=== PATIENT | male | born 1995 | race Caucasian/White ===

== ENCOUNTER 2017-06-09 14:31 | Inpatient (IN) | payer OTHER ==
[~2017-06-09] VITALS: Ht 182.9 cm; Wt 50.9 kg
[2017-06-09 15:16] LABS: MEAN CORPUSCULAR HGB CONC 33.2 g/dl (32.0-36.5); MEAN CORPUSCULAR VOLUME 87.4 fl (80.0-96.0); RED CELL DISTRIBUTION WIDTH 13.1 % (11.5-14.5); WHITE BLOOD COUNT 9.7 K/mm3 (4.0-10.0)
[2017-06-09 15:45] LABS: METHADONE URINE NEGATIVE (NEGATIVE)
[2017-06-09 15:52] LABS: ALBUMIN 4.3 GM/DL (3.2-5.2); ALKALINE PHOSPHATASE 82 U/L (45-117); ALT/SGPT 29 U/L (12-78); ANION GAP 10 MEQ/L (8-16); AST/SGOT 19 U/L (15-37); BILIRUBIN,DIRECT 0.2 MG/DL (0.0-0.2); BILIRUBIN,TOTAL 0.6 MG/DL (0.2-1.0); BLOOD UREA NITROGEN 12 MG/DL (7-18); CALCIUM LEVEL 8.5 MG/DL (8.5-10.1); CARBON DIOXIDE LEVEL 25 MEQ/L (21-32); CHLORIDE LEVEL 108 MEQ/L (98-107); CREATININE FOR GFR 0.99 MG/DL (0.70-1.30); GLUCOSE, FASTING 99 MG/DL (70-105); POTASSIUM SERUM 3.9 MEQ/L (3.5-5.1); SODIUM LEVEL 143 MEQ/L (136-145); TOTAL PROTEIN 7.6 GM/DL (6.4-8.2)
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
[2017-06-09] MEDS ORDERED: hydrOXYzine 25 MG TAB PO PRN (19:00)
[2017-06-09] MEDS ORDERED: OLANZapine ORAL DISINTEGRATING TAB 5MG PO PRN (19:00)
[2017-06-09] MEDS ORDERED: MOM 30ML SUSPENSION UDC PO PRN (19:00)
[2017-06-09] MEDS ORDERED: ACETAMINOPHEN TAB 650MG DOSE (2X325MG) PO PRN (19:00)
[2017-06-09] MEDS ORDERED: MAALOX 30 ML SUSP *UDC PO PRN (19:00)
--- NOTE | 2017-06-09 19:46 | ECGEPIP ---
Stationary ECG Study [facility] - ED Test Date: 2017-06-09 Pat Name: LB AWAD Department: Room: - Gender: M Physician Assistant Surgery: GENI : 1995 Requested By: Vickie Moore Order Number: [id number] Reading MD: Yan Page Measurements Intervals [place] Rate: 79 P: 57 MA: 184 QRS: 42 QRSD: 107 T: 33 QT: 355 QTc: 407 Interpretive Statements SINUS RHYTHM POSSIBLE LAE INC. RBBB NO PRIORS Electronically Signed On 06-09-2017 19:46:00 EDT by Yan Page
[2017-06-09 21:20] VITALS: BP 118/63
[2017-06-10 07:44] VITALS: BP 139/71
--- NOTE | 2017-06-10 16:41 | HPE ---
DATE OF ADMISSION: 06/09/2017 HISTORY OF PRESENT ILLNESS: Please refer to the psychiatric history and evaluation for further details on this admission. This examination and history is intended for medical issues which may need treatment, followup or consultation on this 21-year-old male. ALLERGIES: No known allergies. PRIMARY CARE PROVIDER: Martin Darden. 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 He does not drink alcohol. He smokes about three cigarettes per day. Recreational drug use: None. PAST MEDICAL HISTORY: Negative. PAST SURGICAL HISTORY: Negative. HOME MEDICATIONS: None. FAMILY HISTORY: Noncontributory. LABORATORY STUDIES: WBC 9.7, hemoglobin 12.9, hematocrit 38.7, platelets 208. Toxicology screen negative. Sodium 143, potassium 3.9, chloride 108, CO2 25, BUN and creatinine 12 and 0.99. EKG showed sinus rhythm of 79. X-ray of the neck was negative soft tissue x-ray. REVIEW OF SYSTEMS: Ten systems review was done and was unremarkable. The patient had attempted to hand himself. He states no difficulty swallowing. He has eaten. No neck pain. PHYSICAL EXAMINATION: A 21-year-old cooperative male in no acute distress. He is wearing glasses. Height 72 inches. Weight 83.8 kg. Body Mass Index (BMI) 25. Blood pressure 131/71, pulse 100, respirations 18, temperature 99.2, oxygen saturation 99% on room air. The patient is alert and oriented times three. Pupils are equal and reactive to light. Extraocular muscles intact. Sclerae clear. Conjunctivae normal. No facial asymmetry. Pharynx, gums and tongue pink and moist. Tongue is midline. Neck is supple without lymphadenopathy. No thyromegaly. No goiter. Carotids 2+ without bruit. Chest is clear to auscultation without wheeze or retraction. Heart is regular. Abdomen is benign. Bowel sounds positive. Genitourinary/Rectal: Not done. Extremities show equal strength, full range of motion. No clubbing, cyanosis, or edema. Peripheral pulses equal and palpable bilaterally. Skin is warm and dry. IMPRESSION AND PLAN: 1. Psychiatric plan per psychiatry. 2. No acute medical issues.
[2017-06-10 18:00] VITALS: BP 132/87
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
[2017-06-10] MEDS: traZODone 50 MG TAB PO PRN (20:49)
[2017-06-11 06:59] VITALS: BP 112/56
[2017-06-11] MEDS: FLUoxetine 10 MG CAP PO SCH (12:58)
[2017-06-11 18:00] VITALS: BP 117/59
--- NOTE | 2017-06-11 18:20 | MHIPNPDOC ---
[facility] Progress Note Progress Note DATE OF SERVICE: 06/11/17 HISTORY: Patient was seen and evaluated for his progress in the inpatient psychiatric unit. On evaluation, he reported that he has been feeling less depressed and anxious in the unit, mostly because the stresses of the work and the recent punishment that he was getting in the [employer] was to most stressful things that he has in his life and making him feel depressed and suicidal. After admission to the hospital. He is able to focus more on himself and currently denies any suicidal or homicidal ideations. He is willing to talk with the staff of the unit. If the suicidal ideas get worse in the unit. He denies any plan to commit suicide attempt suicide in the unit. He reported that his father and other family members where worried about him having autism, but he has never been diagnosed with autism formally. His half brother has been diagnosed with autism but he reported that he had difficulty in the school and the childhood most of the time, especially in the middle school and high school. He had difficulty to pass exams, but was never left behind. VITAL SIGNS: See below. CURRENT MEDICATIONS: See below. MENTAL STATUS EXAMINATION: 21yo male sitting in the chair, looks appropriate for the stated age, fair hygiene and grooming, normal psychomotor activities, no abnormal movements, cooperative with limited eye contact, speech is soft normal in rate, rhythm, amount and prosody, mood is 'sad & anxious', affect constricted and mood congruent, thought process is logical and goal directed, denies suicidal and homicidal ideations, denies hallucinations, no delusions elicited, aaox3, fair immediate, short term and half-way memory, poor insight, judgement and impulse control DIAGNOSES: 1. Major depression disorder with no psychosis. 2.. Anxiety disorder. 3., PTSD. MANAGEMENT PLAN: Start Prozac 10 mg a day. TIME SPENT:15 minutes. Vital Signs Vital Signs Date Time Temp Pulse Resp B/P (MAP) Pulse Ox O2 Delivery O2 Flow Rate FiO2 06/11/17 06:59 98.1 54 16 112/56 (74) Room Air 06/09/17 21:20 98 Current Medications Current Medications Acetaminophen (Tylenol Tab) 650 mg Q6HP PRN PO HEADACHE or DISCOMFORT; Start at 19:00; Stop 07/09/17 at 18:59 Al Hydrox/Mg Hydrox/Simethicone (Mylanta) 30 ml Q4HP PRN PO HEARTBURN/ INDIGESTION; Start 06/09/17 at 19:00; Stop 07/09/17 at 18:59 Fluoxetine HCl (PROzac) 10 mg QAM PO Last administered on 06/11/17 12:58; Start 06/11/17 at 09:00; Stop 07/11/17 at 08:59 Home Med (Med Rec Complete!) ASDIRECTED XX ; Start 06/09/17 at 15:15; Stop at 15:15; Status DC Hydroxyzine HCl (Atarax) 75 mg Q4HP PRN PO ANXIETY; Start 06/09/17 at 19:00; Stop 07/09/17 at 18:59 Magnesium Hydroxide (Milk Of Magnesia) 30 ml DAILYPRN PRN PO CONSTIPATION; Start 06/09/17 at 19:00; Stop 07/09/17 at 18:59 Olanzapine (ZyPREXA ZYDIS) 5 mg Q4HP PRN PO AGITATION; Start 06/09/17 at 19 :00; Stop 07/09/17 at 18:59 Trazodone HCl (Desyrel) 50 mg QHSP PRN PO INSOMNIA Last administered on 20:49; Start 06/09/17 at 19:00; Stop 07/09/17 at 18:59 Allergies Coded Allergies: No Known Allergies (Unverified , 06/09/17) MARY MOREL MD Jun 11, 2017 18:20
[2017-06-11] MEDS: traZODone 50 MG TAB PO PRN (20:27)
[2017-06-12 06:15] VITALS: BP 120/53
[2017-06-12] MEDS: FLUoxetine 10 MG CAP PO SCH (09:11)
--- NOTE | 2017-06-12 14:21 | MHIPNPDOC ---
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 No deployment, never , no children, no significant past psychiatric history never been admitted to inpatient psychiatric hospital or ever been on psychotropic medications, denies any substance use. No significant past medical history, brought in by chain of command for his recent suicide attempt with hanging self. Patient was seen and evaluated for his progress and inpatient psychiatry unit. He reported that he has been feeling less depressed and less anxious while he is here and denies any suicidal or homicidal ideations. He also denies any plans or intention to commit suicide while being in the hospital and willing to seek help if the thoughts of suicide, get worse. He remains to himself and is reading the books most of the time, feeling traction with others in the unit and somewhat limited participation in the unit activities. Encouraged patient to anticipate more into unit. He reported started taking medications and denies any side effects with the current medications. Sleeping and eating well. Discussed about coping skills and also discussed about preparing journal and coping card. He is able to understand that changes in distress have been affecting him. VITAL SIGNS: See below. CURRENT MEDICATIONS: See below. MENTAL STATUS EXAMINATION: 21yo male sitting in the chair, looks appropriate for the stated age, fair hygiene and grooming, normal psychomotor activities, no abnormal movements, cooperative with limited eye contact, speech is soft normal in rate, rhythm, amount and prosody, mood is 'sad & anxious', affect constricted and mood congruent, thought process is logical and goal directed, denies suicidal and homicidal ideations, denies hallucinations, no delusions elicited, aaox3, fair immediate, short term and usp memory, poor insight, judgement and impulse control DIAGNOSES: 1. Major depression disorder with no psychosis. 2. Anxiety disorder. 3. PTSD. MANAGEMENT PLAN: Start Prozac 10 mg a day. TIME SPENT:15 minutes. Vital Signs Vital Signs Date Time Temp Pulse Resp B/P (MAP) Pulse Ox O2 Delivery O2 Flow Rate FiO2 06/12/17 06:15 98.1 55 19 120/53 (75) Room Air 06/09/17 21:20 98 Current Medications Current Medications Acetaminophen (Tylenol Tab) 650 mg Q6HP PRN PO HEADACHE or DISCOMFORT; Start at 19:00; Stop 07/09/17 at 18:59 Al Hydrox/Mg Hydrox/Simethicone (Mylanta) 30 ml Q4HP PRN PO HEARTBURN/ INDIGESTION; Start 06/09/17 at 19:00; Stop 07/09/17 at 18:59 Fluoxetine HCl (PROzac) 10 mg QAM PO Last administered on 06/12/17 09:11; Start 06/11/17 at 09:00; Stop 07/11/17 at 08:59 Home Med (Med Rec Complete!) ASDIRECTED XX ; Start 06/09/17 at 15:15; Stop at 15:15; Status DC Hydroxyzine HCl (Atarax) 75 mg Q4HP PRN PO ANXIETY; Start 06/09/17 at 19:00; Stop 07/09/17 at 18:59 Magnesium Hydroxide (Milk Of Magnesia) 30 ml DAILYPRN PRN PO CONSTIPATION; Start 06/09/17 at 19:00; Stop 07/09/17 at 18:59 Olanzapine (ZyPREXA ZYDIS) 5 mg Q4HP PRN PO AGITATION; Start 06/09/17 at 19 :00; Stop 07/09/17 at 18:59 Trazodone HCl (Desyrel) 50 mg QHSP PRN PO INSOMNIA Last administered on 20:27; Start 06/09/17 at 19:00; Stop 07/09/17 at 18:59 Allergies Coded Allergies: No Known Allergies (Unverified , 06/09/17) MARY MOREL MD Jun 12, 2017 14:21
[2017-06-12 18:00] VITALS: BP 106/62
[2017-06-13 07:03] VITALS: BP 113/58
[2017-06-13] MEDS: FLUoxetine 10 MG CAP PO SCH (08:53)
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
[2017-06-13 18:00] VITALS: BP 110/59
[2017-06-13] MEDS: traZODone 50 MG TAB PO PRN (21:10)
[2017-06-14 06:00] VITALS: BP 112/56
[2017-06-14] MEDS: FLUoxetine 20 MG CAP PO SCH (08:15)
[2017-06-14 18:00] VITALS: BP 103/58
[2017-06-14] MEDS: traZODone 50 MG TAB PO PRN (22:06)
[2017-06-15 06:36] VITALS: BP 104/53
[2017-06-15] MEDS: FLUoxetine 20 MG CAP PO SCH (09:00)
[2017-06-15 18:00] VITALS: BP 134/73
[2017-06-15] MEDS: traZODone 50 MG TAB PO PRN (21:52)
[2017-06-16 06:00] VITALS: BP 128/60
[2017-06-16] MEDS: FLUoxetine 20 MG CAP PO SCH (08:46)
--- NOTE | 2017-06-16 14:21 | MHIPNPDOC ---
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 No deployment, never , no children, no significant past psychiatric history never been admitted to inpatient psychiatric hospital or ever been on psychotropic medications, denies any substance use. No significant past medical history, brought in by [employer] for his recent suicide attempt with hanging self. Patient was seen and evaluated for his progress in inpatient psychiatry. On evaluation, patient reported that he has been feeling better and able to go to a different unit activities including group therapy, and milieu treatment. He finds dose treatment helpful in terms of learning new coping skills and also learning new communication skills, which he is planning to use in work as well as other aspects of life, reported being compliant with the medications and denies any side effects. Also denies any sleep or appetite problems. He continued to deny any suicidal or homicidal ideations, intentions or plans. He was willing to engage in the safety plan that he will be able to talk with the outpatient psychiatrist or therapist about any changes or deterioration in his mood and also willing to talk with friends about it. He is also willing to call 911 in case of emergencies. He reported that there is a change in his position in the [employer] and he is looking forward to the new position because he knows the people in the new position and thinks that the new position will be of less stress compared to the previous one. VITAL SIGNS: See below. CURRENT MEDICATIONS: See below. MENTAL STATUS EXAMINATION: 21yo male sitting in the chair, looks appropriate for the stated age, fair hygiene and grooming, normal psychomotor activities, no abnormal movements, cooperative with limited eye contact, speech is soft normal in rate, rhythm, amount and prosody, mood is 'fine', affect full and mood congruent, thought process is logical and goal directed, denies suicidal and homicidal ideations, denies hallucinations, no delusions elicited, aaox3, fair immediate, short term and senior living memory, improving insight, judgement and impulse control DIAGNOSES: 1. Major depression disorder with no psychosis. 2. Anxiety disorder. 3. PTSD. MANAGEMENT PLAN: Continue current meds, discharge planning in progress. TIME SPENT:15 minutes. Vital Signs Vital Signs Date Time Temp Pulse Resp B/P (MAP) Pulse Ox O2 Delivery O2 Flow Rate FiO2 8/28/17 06:00 98.2 69 18 128/60 (82) Room Air Current Medications Current Medications Acetaminophen (Tylenol Tab) 650 mg Q6HP PRN PO HEADACHE or DISCOMFORT; Start at 19:00; Stop 07/09/17 at 18:59 Al Hydrox/Mg Hydrox/Simethicone (Mylanta) 30 ml Q4HP PRN PO HEARTBURN/ INDIGESTION; Start 06/09/17 at 19:00; Stop 07/09/17 at 18:59 Fluoxetine HCl (PROzac) 10 mg QAM PO Last administered on 06/13/17 08:53; Start 06/11/17 at 09:00; Stop 06/13/17 at 13:59; Status DC Fluoxetine HCl (PROzac) 20 mg QAM PO Last administered on 06/16/17 08:46; Start 06/14/17 at 09:00; Stop 07/14/17 at 08:59 Home Med (Med Rec Complete!) ASDIRECTED XX ; Start 06/09/17 at 15:15; Stop at 15:15; Status DC Hydroxyzine HCl (Atarax) 75 mg Q4HP PRN PO ANXIETY; Start 06/09/17 at 19:00; Stop 07/09/17 at 18:59 Magnesium Hydroxide (Milk Of Magnesia) 30 ml DAILYPRN PRN PO CONSTIPATION; Start 06/09/17 at 19:00; Stop 07/09/17 at 18:59 Olanzapine (ZyPREXA ZYDIS) 5 mg Q4HP PRN PO AGITATION; Start 06/09/17 at 19 :00; Stop 07/09/17 at 18:59 Trazodone HCl (Desyrel) 50 mg QHSP PRN PO INSOMNIA Last administered on 21:52; Start 06/09/17 at 19:00; Stop 07/09/17 at 18:59 Allergies Coded Allergies: No Known Allergies (Unverified , 06/09/17) MARY MOREL MD Jun 16, 2017 14:21
[2017-06-16] MEDS ORDERED: FLUO20CA19 PO (14:22)
[2017-06-16] MEDS ORDERED: TRAZO50TA PO (14:22)
[2017-06-16 18:00] VITALS: BP 107/56
[2017-06-17 06:52] VITALS: BP 111/55
[2017-06-17] MEDS ORDERED: TRAZO50TA PO (08:52)
[2017-06-17] MEDS ORDERED: FLUO20CA19 PO (08:52)
[2017-06-17] MEDS: FLUoxetine 20 MG CAP PO SCH (09:00)
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
== END 2017-06-17 09:20 | disposition home or self-care (01) | DRG 885 ==
LOC: M ED 14:31 → M ED INP 18:47 → M PSY 21:20
PROVIDERS: ADMIT Psychiatry & Neurology Psychiatry; ATTEND Psychiatry & Neurology Psychiatry
DX: F33.2 Major depressive disorder, recurrent severe without psychotic features (principal); R45.851 Suicidal ideations; F43.10 Post-traumatic stress disorder, unspecified; Z62.810 Personal history of physical and sexual abuse in childhood; F17.210 Nicotine dependence, cigarettes, uncomplicated

== ENCOUNTER 2017-07-12 01:23 | Inpatient (IN) | payer OTHER ==
[~2017-07-12] VITALS: Ht 182.9 cm; Wt 79.0 kg
[~2017-07-12 01:23] MED LIST: FLUO20CA19 PO; TRAZO50TA PO
[2017-07-12] MEDS ORDERED: NS 1,000 ML IV ONE (02:30)
[2017-07-12 02:35] LABS: MEAN CORPUSCULAR HGB CONC 34.3 g/dl (32.0-36.5); MEAN CORPUSCULAR VOLUME 87.4 fl (80.0-96.0); RED CELL DISTRIBUTION WIDTH 13.3 % (11.5-14.5); WHITE BLOOD COUNT 13.3 K/mm3 (4.0-10.0)
[2017-07-12 02:51] LABS: ALBUMIN 4.1 GM/DL (3.2-5.2); ALBUMIN/GLOBULIN RATIO 1.11 (1.00-1.93); ALKALINE PHOSPHATASE 90 U/L (45-117); ALT/SGPT 53 U/L (12-78); ANION GAP 8 MEQ/L (8-16); AST/SGOT 32 U/L (15-37); BILIRUBIN,DIRECT 0.2 MG/DL (0.0-0.2); BILIRUBIN,TOTAL 0.4 MG/DL (0.2-1.0); BLOOD UREA NITROGEN 14 MG/DL (7-18); CALCIUM LEVEL 8.5 MG/DL (8.5-10.1); CARBON DIOXIDE LEVEL 27 MEQ/L (21-32); CHLORIDE LEVEL 108 MEQ/L (98-107); CREATININE FOR GFR 0.77 MG/DL (0.70-1.30); GLUCOSE, FASTING 106 MG/DL (70-105); SODIUM LEVEL 143 MEQ/L (136-145); TOTAL PROTEIN 7.8 GM/DL (6.4-8.2)
[2017-07-12 03:07] LABS: METHADONE URINE NEGATIVE (NEGATIVE)
[2017-07-12] MEDS ORDERED: MOM 30ML SUSPENSION UDC PO PRN (10:00)
[2017-07-12] MEDS ORDERED: MAALOX 30 ML SUSP *UDC PO PRN (10:00)
[2017-07-12] MEDS ORDERED: ACETAMINOPHEN TAB 650MG DOSE (2X325MG) PO PRN (10:00)
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
[2017-07-12] MEDS: FLUoxetine 20 MG CAP PO SCH (15:24)
[2017-07-12] MEDS ORDERED: NICOTINE 21MG/24HR 1 EA TRANSDERMAL TD ONE (17:45)
[2017-07-12 18:15] VITALS: BP 112/66
[2017-07-12] MEDS: traZODone 50 MG TAB PO PRN (20:09)
[2017-07-13] MEDS: FLUoxetine 20 MG CAP PO SCH (08:47)
[2017-07-13] MEDS: NICOTINE 21MG/24HR 1 EA TRANSDERMAL TD SCH (08:47)
--- NOTE | 2017-07-13 13:48 | HPE ---
DATE OF ADMISSION: 07/13/2017 HISTORY OF THE PRESENT ILLNESS: Please refer to psychiatric history and evaluation for further details on this admission. This examination and history is intended for medical issues, which may need treatment, followup or consult on this 22-year-old male. ALLERGIES: No known allergies. 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 He occasionally drinks alcohol on the weekends. He smokes about three cigarettes per day. Recreational drug use: None. PAST MEDICAL HISTORY: Negative. PAST SURGICAL HISTORY: Negative. HOME MEDICATIONS: None. He states he never filled the prescriptions he received upon his last admission here in May. LABORATORY STUDIES: WBC 13.3, hemoglobin 14.1, hematocrit 41.0, platelets 224. Sodium 143, potassium 4.0, chloride 108, CO2 27, BUN and creatinine 14 and 0.77. Toxicology screen was negative. EKG done in May showed sinus rhythm 79. FAMILY HISTORY: Noncontributory. Ten-system review was done and was unremarkable. PHYSICAL EXAMINATION: A 22-year-old cooperative male in no acute distress. Height 70 inches, weight 79.5, body mass index (BMI) 23. Blood pressure 128/60, pulse 85, respirations 16, temperature 98.4. The patient is alert and oriented times three. Pupils are equal and reactive to light. Extraocular movements intact. Cornea and sclerae clear. Conjunctivae is normal. No facial asymmetry. Pharynx: Tongue and gums pink and moist. Tongue is midline. Neck is supple without lymphadenopathy. No thyromegaly. No goiter. Carotids 2+ without bruit. Chest is clear to auscultation without wheeze or retractions. Heart is regular. Abdomen benign. Bowel sounds are positive. Genital/Rectal: Not done. Extremities show equal strength, full range of motion. No cyanosis, clubbing or edema. Peripheral pulses equal and palpable bilaterally. Skin is warm and dry. IMPRESSION AND PLAN: Psychiatric plan per psychiatry. No acute medical issues.
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
[2017-07-13 18:10] VITALS: BP 105/58
[2017-07-13] MEDS: traZODone 50 MG TAB PO PRN (21:19)
[2017-07-14 06:36] VITALS: BP 116/58
[2017-07-14] MEDS: FLUoxetine 20 MG CAP PO SCH (08:40)
[2017-07-14] MEDS: NICOTINE 21MG/24HR 1 EA TRANSDERMAL TD SCH (08:40)
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
[2017-07-14 18:00] VITALS: BP 121/64
[2017-07-14] MEDS: traZODone 100 MG TAB PO PRN (20:21)
[2017-07-15 06:22] VITALS: BP 100/52
[2017-07-15] MEDS: NICOTINE 21MG/24HR 1 EA TRANSDERMAL TD SCH (08:48)
[2017-07-15] MEDS: FLUoxetine 20 MG CAP PO SCH (08:48)
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
[2017-07-15 18:00] VITALS: BP 110/82
[2017-07-15] MEDS: traZODone 100 MG TAB PO PRN (21:35)
[2017-07-16 06:54] VITALS: BP 120/58
[2017-07-16] MEDS: NICOTINE 21MG/24HR 1 EA TRANSDERMAL TD SCH (08:21)
[2017-07-16] MEDS: FLUoxetine 20 MG CAP PO SCH (08:21)
--- NOTE | 2017-07-16 16:12 | MHIPN ---
DATE: 07/16/2017 Mr. Bergeron states he slept better. His mood is improved. He states, however, his mood is much better when he is with friends. 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 He would like to begin the chaptering process. He would like to be chaptered out. He feels he will be charged with underage drinking and abusive of over-the counter medications. 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 He would like to move in with friends and then with his father, go to school, move to [place], and do drafting work. MENTAL STATUS: Speech is normal. Thought process is normal. No loose associations. No psychotic thoughts. Eye contact is poor. Affect is downcast. Judgment and insight are poor. Full orientation. Recent and remote memory are intact. Attention and concentration intact. No disturbance of language. Denies delusions, hallucinations, obsessions, compulsions. He has full fund of knowledge. DIAGNOSES: 1. Major depression. 2. Generalized anxiety.
[2017-07-16 18:00] VITALS: BP 131/65
[2017-07-16] MEDS: traZODone 100 MG TAB PO PRN (22:29)
[2017-07-17 06:00] VITALS: BP 109/52
[2017-07-17] MEDS: NICOTINE 21MG/24HR 1 EA TRANSDERMAL TD SCH (08:49)
[2017-07-17] MEDS: FLUoxetine 20 MG CAP PO SCH (08:49)
--- NOTE | 2017-07-17 15:07 | MHIPN ---
DATE: 07/17/2017 Mr. Bergeron continues to have poor eye contact. He states he has had a meeting with his chain of command and that they have told him he was going to be chaptered out. They wanted to know he states that his command wanted to know why he did not have to talk and why it is difficult for him to share his thoughts. He states Dr. Connor mentioned to him that he had certain autistic features. He states his feelings are mixed about being chaptered out, that he is disappointed he could not go to his contract, but he is hoping to go home to [place], grow a dsouza, get a dog, and get a job. He waivers on suicidal thoughts, stating he needs to "work through these last episodes in the [employer]." He states it can take numerous weeks for him to be chaptered out. DIAGNOSES: Depression. Autistic features. Generalized anxiety. No change in medication at this time.
[2017-07-17 18:00] VITALS: BP 121/63
[2017-07-17] MEDS: traZODone 100 MG TAB PO PRN (21:27)
[2017-07-18 06:23] VITALS: BP 110/56
[2017-07-18] MEDS: FLUoxetine 20 MG CAP PO SCH (10:06)
[2017-07-18] MEDS: NICOTINE 21MG/24HR 1 EA TRANSDERMAL TD SCH (10:06)
--- NOTE | 2017-07-18 11:35 | MHIPN ---
DATE: 07/18/2017 Staff has spent a great deal of time discussing with Mr. Bergeron whether in fact he should go to long-term care. A therapist who he is not completely aware of called me yesterday stating that it was her decision, but thought that he should go to long-term care. The patient himself would perhaps rather be chaptered out and return to [place] and seek treatment from home. The patient is presently ambivalent on this topic. MENTAL STATUS EXAMINATION: Eye contact is slightly better. Speech is still slow. Thought process is slow. No loose associations. No psychotic thoughts. Judgment and insight are poor. He is fully oriented. Recent and remote memory intact. Attention and concentration intact. No disturbance of language. Full fund of knowledge. Mood is neutral. Affect is neutral. DIAGNOSES: 1. Major depressive illness. 2. Personality disorder traits PLAN: Patient either to be discharged to [facility] and continue chapter process or discharged to long-term care. He will be having a meeting with the chain of command today. NELIA
[2017-07-18] MEDS: hydrOXYzine 25 MG TAB PO PRN (14:32)
[2017-07-18 18:00] VITALS: BP_SYST 111; BP_SYST 153; BP_DIAS 63; BP_DIAS 94
[2017-07-19 06:59] VITALS: BP 97/54
[2017-07-19] MEDS: NICOTINE 21MG/24HR 1 EA TRANSDERMAL TD SCH (08:50)
[2017-07-19] MEDS: FLUoxetine 20 MG CAP PO SCH (08:51)
[2017-07-19] MEDS: hydrOXYzine 25 MG TAB PO PRN (12:03)
[2017-07-19] MEDS ORDERED: OLANZapine 5 MG TAB PO PRN (12:15)
[2017-07-19 18:00] VITALS: BP 100/55
[2017-07-20 06:00] VITALS: BP 111/56
[2017-07-20] MEDS: NICOTINE 21MG/24HR 1 EA TRANSDERMAL TD SCH ×2 (08:50→09:00)
[2017-07-20] MEDS: FLUoxetine 20 MG CAP PO SCH (08:50)
[2017-07-20 18:00] VITALS: BP 109/55
[2017-07-20] MEDS: traZODone 100 MG TAB PO PRN (20:40)
[2017-07-21 06:33] VITALS: BP 108/57
[2017-07-21] MEDS: FLUoxetine 20 MG CAP PO SCH (09:54)
[2017-07-21] MEDS: NICOTINE 21MG/24HR 1 EA TRANSDERMAL TD SCH (09:55)
--- NOTE | 2017-07-21 15:19 | MHIPNPDOC ---
[facility] Progress Note Progress Note DATE OF SERVICE: 07/21/17 HISTORY: . Shortness of 22 years old. male that was admitted due to worsening depressive symptoms, increased anxiety and some suicidal ideas with no specific plan currently. He endorsed depressed mood, feeling more anxious than usual, having sleeping problems, not able to sleep at night, waking up frequently. Denied any just hurt himself. No manic hypomanic symptoms or psychosis, no panic attacks or symptoms of panic disorder. No symptoms of PTSD VITAL SIGNS: See below. NEW TEST RESULTS: . CURRENT MEDICATIONS: See below. MENTAL STATUS EXAMINATION: Patient is a 22-year-old male, looks stated age, casually dressed Speech: Is . Fluent and coherent Language skills are . Amelia Thought processes including: . Linear and coherent, goal-directed Thought content: No suicidal or homicidal ideas. No delusions elicited. No perceptual disturbances Description of abnormal or psychotic thoughts: . No psychosis Judgment: . Fair Insight: very limited, good, fair. poor. Fair Orientation: . Oriented 3 Recent and remote memory: . Intact Attention span and concentration: . Fair Language: . No abnormalities Fund of knowledge: . Adequate Mood: " More anxious". Affect: . Constricted but appropriate, congruent DIAGNOSES: 1. . Major depressive disorder, single episode 2. . 3. . ASSESSMENT: Continue current medications. Discharge plan to long-term facility for long- term treatment care became Vistaril 50 mg every 6 hours as needed for anxiety and insomnia MANAGEMENT PLAN: . TIME SPENT: 25 minutes. Vital Signs Vital Signs Date Time Temp Pulse Resp B/P (MAP) Pulse Ox O2 Delivery O2 Flow Rate FiO2 07/21/17 06:33 96.8 60 14 108/57 (74) 07/20/17 06:00 Room Air Current Medications Current Medications Acetaminophen (Tylenol Tab) 650 mg Q6HP PRN PO HEADACHE or DISCOMFORT; Start at 10:00; Stop 08/11/17 at 09:59 Al Hydrox/Mg Hydrox/Simethicone (Mylanta) 30 ml Q4HP PRN PO HEARTBURN/ INDIGESTION; Start 07/12/17 at 10:00; Stop 08/11/17 at 09:59 Fluoxetine HCl (PROzac) 20 mg DAILY PO Last administered on 07/13/17t 08:47; Start 07/12/17 at 09:00; Stop 07/13/17 at 12:11; Status DC Fluoxetine HCl (PROzac) 40 mg DAILY PO Last administered on 07/21/17 09:54; Start 07/14/17 at 09:00; Stop 08/13/17 at 08:59 Home Med (Med Rec Complete!) ASDIRECTED XX ; Start 07/12/17 at 09:45; Stop at 09:45; Status DC Hydroxyzine HCl (Atarax) 25 mg BIDP PRN PO ANXIETY Last administered on 12:03; Start 07/18/17 at 14:30; Stop 07/19/17 at 12:10; Status DC Hydroxyzine HCl (Atarax) 50 mg Q8H PRN PO ANXIETY, INSOMNIA; Start 07/21/17 at 14:15; Stop 08/20/17 at 14:14 Magnesium Hydroxide (Milk Of Magnesia) 30 ml DAILYPRN PRN PO CONSTIPATION; Start 07/12/17 at 10:00; Stop 08/11/17 at 09:59 Nicotine (Nicoderm Cq 21mg) 1 patch DAILY TD Last administered on 07/21/17 09: 55; Start 07/13/17 at 09:00; Stop 08/12/17 at 08:59 Olanzapine (ZyPREXA) 5 mg Q6HP PRN PO ANXIETY/AGITATION Last administered on 16:14; Start 07/19/17 at 12:15; Stop 08/18/17 at 12:14 Trazodone HCl (Desyrel) 50 mg QHSP PRN PO INSOMNIA Last administered on 21:19; Start 07/12/17 at 10:00; Stop 07/14/17 at 11:48; Status DC Trazodone HCl (Desyrel) 100 mg QHSP PRN PO INSOMNIA Last administered on 20:40; Start 07/14/17 at 11:45; Stop 08/13/17 at 11:44 Allergies Coded Allergies: No Known Allergies (Unverified , 06/09/17) CECILIA UMANZOR MD Jul 21, 2017 15:19
[2017-07-21 18:09] VITALS: BP 124/68
[2017-07-21] MEDS: hydrOXYzine 50 MG TAB PO PRN (18:55)
[2017-07-21] MEDS: traZODone 100 MG TAB PO PRN (20:44)
[2017-07-22 06:35] VITALS: BP 126/69
[2017-07-22] MEDS: FLUoxetine 20 MG CAP PO SCH (09:25)
[2017-07-22] MEDS: NICOTINE 21MG/24HR 1 EA TRANSDERMAL TD SCH (09:25)
--- NOTE | 2017-07-22 13:38 | MHIPNPDOC ---
[facility] Progress Note Progress Note DATE OF SERVICE: 07/22/17 HISTORY: . Patient reported feeling less anxious today. He was prescribed Vistaril 50 mg every 8 hours as needed for anxiety. He took one dose yesterday. Reported slept around 6 hours. Denied any ideas of self-harm, however, continues to endorse depressed mood. No side effects of medications. Recommendations is to continue the Prozac 40 mg daily and the Vistaril 50 mg every 8 hours. No medication changes for today VITAL SIGNS: See below. NEW TEST RESULTS: none. CURRENT MEDICATIONS: See below. MENTAL STATUS EXAMINATION: Patient is a 22-year-old male, looks stated age, casually dressed Speech: Is . Fluent and coherent Language skills are . Amelia Thought processes including: . Linear and coherent, goal-directed Thought content: No suicidal or homicidal ideas. No delusions elicited. No perceptual disturbances Description of abnormal or psychotic thoughts: . No psychosis Judgment: . Fair Insight: very limited, good, fair. poor. Fair Orientation: . Oriented 3 Recent and remote memory: . Intact Attention span and concentration: . Fair Language: . No abnormalities Fund of knowledge: . Adequate Mood: " More anxious". Affect: . Constricted but appropriate, congruent DIAGNOSES: 1. . Major depressive disorder 2. . 3. . ASSESSMENT: 22 years old male with symptoms of depression and anxiety really doing a little better. Still with depressed mood but anxiety is under control with current medications. He will benefit from long-term care MANAGEMENT PLAN: . Continue Vistaril 50 mg every day, every 8 hours as needed for anxiety and Prozac 40 mg daily for depression TIME SPENT: 25 minutes. Vital Signs Vital Signs Date Time Temp Pulse Resp B/P (MAP) Pulse Ox O2 Delivery O2 Flow Rate FiO2 07/22/17 06:35 97.2 61 16 126/69 (88) 07/20/17 06:00 Room Air Current Medications Current Medications Acetaminophen (Tylenol Tab) 650 mg Q6HP PRN PO HEADACHE or DISCOMFORT; Start at 10:00; Stop 08/11/17 at 09:59 Al Hydrox/Mg Hydrox/Simethicone (Mylanta) 30 ml Q4HP PRN PO HEARTBURN/ INDIGESTION; Start 07/12/17 at 10:00; Stop 08/11/17 at 09:59 Fluoxetine HCl (PROzac) 20 mg DAILY PO Last administered on 07/13/17 08:47; Start 07/12/17 at 09:00; Stop 07/13/17 at 12:11; Status DC Fluoxetine HCl (PROzac) 40 mg DAILY PO Last administered on 07/22/17 09:25; Start 07/14/17 at 09:00; Stop 08/13/17 at 08:59 Home Med (Med Rec Complete!) ASDIRECTED XX ; Start 07/12/17 at 09:45; Stop at 09:45; Status DC Hydroxyzine HCl (Atarax) 25 mg BIDP PRN PO ANXIETY Last administered on 12:03; Start 07/18/17 at 14:30; Stop 07/19/17 at 12:10; Status DC Hydroxyzine HCl (Atarax) 50 mg Q8H PRN PO ANXIETY, INSOMNIA Last administered on 07/21/17 18:55; Start 07/21/17 at 14:15; Stop 08/20/17 at 14:14 Magnesium Hydroxide (Milk Of Magnesia) 30 ml DAILYPRN PRN PO CONSTIPATION; Start 07/12/17 at 10:00; Stop 08/11/17 at 09:59 Nicotine (Nicoderm Cq 21mg) 1 patch DAILY TD Last administered on 07/22/17 09: 25; Start 07/13/17 at 09:00; Stop 08/12/17 at 08:59 Olanzapine (ZyPREXA) 5 mg Q6HP PRN PO ANXIETY/AGITATION Last administered on 16:14; Start 07/19/17 at 12:15; Stop 08/18/17 at 12:14 Trazodone HCl (Desyrel) 50 mg QHSP PRN PO INSOMNIA Last administered on 21:19; Start 07/12/17 at 10:00; Stop 07/14/17 at 11:48; Status DC Trazodone HCl (Desyrel) 100 mg QHSP PRN PO INSOMNIA Last administered on 20:44; Start 07/14/17 at 11:45; Stop 08/13/17 at 11:44 Allergies Coded Allergies: No Known Allergies (Unverified , 06/09/17) CECILIA UMANZOR MD Jul 22, 2017 13:31
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
[2017-07-22 18:00] VITALS: BP 100/62
[2017-07-22] MEDS: traZODone 100 MG TAB PO PRN (20:44)
[2017-07-22] MEDS: hydrOXYzine 50 MG TAB PO PRN (20:44)
[2017-07-23 06:20] VITALS: BP 127/56
[2017-07-23] MEDS: FLUoxetine 20 MG CAP PO SCH (08:16)
[2017-07-23] MEDS: NICOTINE 21MG/24HR 1 EA TRANSDERMAL TD SCH ×2 (08:16→08:56)
--- NOTE | 2017-07-23 14:25 | MHIPNPDOC ---
[facility] Progress Note Progress Note DATE OF SERVICE: 07/23/17 HISTORY: . Patient reported feeling less anxious today, REPORTED 02/26 , He was prescribed Vistaril 50 mg every 8 hours as needed for anxiety. He took only one dose yesterday. Reported slept well. Denied any ideas of self-harm. No side effects of medications. Recommendations is to continue the Prozac 40 mg daily and the Vistaril 50 mg every 8 hours. He feels fine, ready for discharge tomorrow morning. VITAL SIGNS: See below. NEW TEST RESULTS: none. CURRENT MEDICATIONS: See below. MENTAL STATUS EXAMINATION: Patient is a 22-year-old male, looks stated age, casually dressed Speech: Is . Fluent and coherent Language skills are . Normal Thought processes including: . Linear and coherent, goal-directed Thought content: No suicidal or homicidal ideas. No delusions elicited. No perceptual disturbances Description of abnormal or psychotic thoughts: . No psychosis Judgment: . Fair Insight: very limited, good, fair. poor. Fair Orientation: . Oriented 3 Recent and remote memory: . Intact Attention span and concentration: . Fair Language: . No abnormalities Fund of knowledge: . Adequate Mood: " More anxious". Affect: . Constricted but appropriate, congruent DIAGNOSES: 1. . Major depressive disorder 2. . 3. . ASSESSMENT: 22 years old male with symptoms of depression and anxiety really doing a little better. His anxiety is under control with current medications. He will benefit from long-term care MANAGEMENT PLAN: . Continue Vistaril 50 mg every day, every 8 hours as needed for anxiety and Prozac 40 mg daily for depression Discharge in the morning to [facility] TIME SPENT: 25 minutes. Vital Signs Vital Signs Date Time Temp Pulse Resp B/P (MAP) Pulse Ox O2 Delivery O2 Flow Rate FiO2 07/23/17 06:20 97.4 72 18 127/56 (79) 07/20/17 06:00 Room Air Current Medications Current Medications Acetaminophen (Tylenol Tab) 650 mg Q6HP PRN PO HEADACHE or DISCOMFORT; Start at 10:00; Stop 08/11/17 at 09:59 Al Hydrox/Mg Hydrox/Simethicone (Mylanta) 30 ml Q4HP PRN PO HEARTBURN/ INDIGESTION; Start 07/12/17 at 10:00; Stop 08/11/17 at 09:59 Fluoxetine HCl (PROzac) 20 mg DAILY PO Last administered on 07/13/17 08:47; Start 07/12/17 at 09:00; Stop 07/13/17 at 12:11; Status DC Fluoxetine HCl (PROzac) 40 mg DAILY PO Last administered on 07/23/17 08:16; Start 07/14/17 at 09:00; Stop 08/13/17 at 08:59 Home Med (Med Rec Complete!) ASDIRECTED XX ; Start 07/12/17 at 09:45; Stop at 09:45; Status DC Hydroxyzine HCl (Atarax) 25 mg BIDP PRN PO ANXIETY Last administered on 12:03; Start 07/18/17 at 14:30; Stop 07/19/17 at 12:10; Status DC Hydroxyzine HCl (Atarax) 50 mg Q8H PRN PO ANXIETY, INSOMNIA Last administered on 07/22/17 20:44; Start 07/21/17 at 14:15; Stop 08/20/17 at 14:14 Magnesium Hydroxide (Milk Of Magnesia) 30 ml DAILYPRN PRN PO CONSTIPATION; Start 07/12/17 at 10:00; Stop 08/11/17 at 09:59 Nicotine (Nicoderm Cq 21mg) 1 patch DAILY TD Last administered on 07/22/17 09: 25; Start 07/13/17 at 09:00; Stop 08/12/17 at 08:59 Olanzapine (ZyPREXA) 5 mg Q6HP PRN PO ANXIETY/AGITATION Last administered on 16:14; Start 07/19/17 at 12:15; Stop 08/18/17 at 12:14 Trazodone HCl (Desyrel) 50 mg QHSP PRN PO INSOMNIA Last administered on 21:19; Start 07/12/17 at 10:00; Stop 07/14/17 at 11:48; Status DC Trazodone HCl (Desyrel) 100 mg QHSP PRN PO INSOMNIA Last administered on 20:44; Start 07/14/17 at 11:45; Stop 08/13/17 at 11:44 Allergies Coded Allergies: No Known Allergies (Unverified , 06/09/17) CECILIA UMANZOR MD Jul 23, 2017 14:25
[2017-07-23] MEDS ORDERED: FLUO20CA19 PO (14:40)
[2017-07-23] MEDS ORDERED: HYDRO50TAB PO (14:40)
[2017-07-23] MEDS ORDERED: NICO21PAT TD (14:40)
[2017-07-23] MEDS ORDERED: TRAZ10TA PO (14:40)
[2017-07-23 18:52] VITALS: BP 98/60
[2017-07-23] MEDS: traZODone 100 MG TAB PO PRN (21:28)
== END 2017-07-24 05:05 | disposition home or self-care (01) | DRG 885 ==
LOC: M ED 01:23 → M ED INP 09:39 → M PSY 11:06
PROVIDERS: ADMIT Psychiatry & Neurology Child & Adolescent Psychiatry; ATTEND Psychiatry & Neurology Psychiatry
DX: F33.9 Major depressive disorder, recurrent, unspecified (principal); Z62.810 Personal history of physical and sexual abuse in childhood; Z79.899 Other long term (current) drug therapy; G47.00 Insomnia, unspecified; F17.210 Nicotine dependence, cigarettes, uncomplicated